=== PATIENT | female | born 1970 | race Caucasian/White ===

== ENCOUNTER 2021-06-13 06:55 | Day surgery (SDC) | payer OTHER ==
[~2021-06-13 06:55] MED LIST: COZAAR100 MG PO; SYNTH
[2021-06-13] MEDS ORDERED: METHYLERGO0.2 MG/11 PO (11:58)
== END 2021-06-13 14:50 | disposition home or self-care (01) ==
LOC: CIR.AMB 06:55
PROVIDERS: ATTEND Obstetrics & Gynecology
DX: N84.0 Polyp of corpus uteri (principal); Z20.822 Contact with and (suspected) exposure to COVID-19

== ENCOUNTER 2023-06-25 09:45 | Inpatient (IN) | payer OTHER ==
[~2023-06-25] VITALS: Ht 157.5 cm; Wt 83.5 kg
[~2023-06-25 09:45] MED LIST changes: +METHYLERGO0.2 MG/11 PO
[2023-06-25] MEDS ORDERED: COZAAR50 MG PO (11:47)
[2023-06-25] MEDS ORDERED: HYDROCHLOROTH12.5 MG PO (11:47)
[2023-06-25] MEDS ORDERED: [UNRECOGNIZED DRUG - OTHER] PO (11:48)
[2023-07-02 14:38] LABS: HEMOGLOBIN 11.4 g/dL (12.0-15.00); MEAN CELL VOLUME 79.1 fL (80.00-100.00); MEAN CORPUSCULAR HEMOGLOBIN 26.6 pg (27.00-32.0); MEAN CORPUSCULAR HGB CONC 33.6 g/dl (32.0-36.0); PLATELET COUNT 224 K/uL (150-450); RED CELL DISTRIBUTION WIDTH 14.7 % (11.5-14.5)
[2023-07-03 06:44] LABS: HEMATOCRIT 28.2 % (36.0-45.00); HEMOGLOBIN 9.7 g/dL (12.0-15.00); MEAN CELL VOLUME 78.7 fL (80.00-100.00); MEAN CORPUSCULAR HEMOGLOBIN 27.1 pg (27.00-32.0); MEAN CORPUSCULAR HGB CONC 34.5 g/dl (32.0-36.0); PLATELET COUNT 175 K/uL (150-450); RED BLOOD COUNT 3.58 M/uL (4.00-6.00); RED CELL DISTRIBUTION WIDTH 14.7 % (11.5-14.5)
[2023-07-03] MEDS ORDERED: COLACE100 MG PO (12:31)
[2023-07-03] MEDS ORDERED: TANDEM DUAL AC106 MG PO (12:31)
[2023-07-03] MEDS ORDERED: KETO10TA2 PO (12:31)
== END 2023-07-03 15:22 | disposition home or self-care (01) | DRG 743 ==
LOC: O/R 07-02 05:25 → OB/GYN 07-02 05:25 → SURH 07-02 09:15 → OB/GYN 07-02 11:41
PROVIDERS: ADMIT Obstetrics & Gynecology; ATTEND Obstetrics & Gynecology
PROC: 0UT64ZZ Resection of Left Fallopian Tube, Percutaneous Endoscopic Approach (ICD-10-PCS; 2023-07-02)
PROC: 0UT14ZZ Resection of Left Ovary, Percutaneous Endoscopic Approach (ICD-10-PCS; 2023-07-02)
PROC: 0DNW4ZZ Release Peritoneum, Percutaneous Endoscopic Approach (ICD-10-PCS; 2023-07-02)
PROC: 0UT94ZZ Resection of Uterus, Percutaneous Endoscopic Approach (ICD-10-PCS; principal; 2023-07-02 09:15)
DX: D25.1 Intramural leiomyoma of uterus (principal); N73.6 Female pelvic peritoneal adhesions (postinfective); N83.12 Corpus luteum cyst of left ovary; N80.03 Adenomyosis of the uterus; Z20.822 Contact with and (suspected) exposure to COVID-19; N70.11 Chronic salpingitis